=== PATIENT | female | born 1990 ===

== ENCOUNTER → 2021-06-04 | Outpatient (CLI) | payer OTHER | END | disposition home or self-care (01) | LOC: SONOGRAMA 14:06 → MAMO-SONO 14:15 | PROVIDERS: ATTEND Specialist | DX: R10.84 Generalized abdominal pain (principal); K80.80 Other cholelithiasis without obstruction; R10.2 Pelvic and perineal pain; D18.09 Hemangioma of other sites; K82.8 Other specified diseases of gallbladder ==